=== PATIENT | male | born 1990 | race Caucasian/White ===

== ENCOUNTER 2019-06-23 19:23 | Emergency (ER) | payer SELFPAY ==
[2019-06-23] MEDS ORDERED: CLINDAMYCIN 600MG/50ML PREMIX 600 MG/50 ML BAG IVPB ONE (19:52)
[2019-06-23 20:01] LABS: ABSOLUTE NEUTROPHIL COUNT 5.53; BASO % 0.2 % (0-6); EOS % 0.9 % (0-6); GRAN % 60.9 % (47-80); HEMATOCRIT 44.9 % (42.0-52.0); HEMOGLOBIN 14.8 gm/dl (14.0-18.0); LYMPH % 30.3 % (16-45); MEAN CELL VOLUME 89.4 fl (81-97); MEAN CORPUSCULAR HEMOGLOBIN 29.5 pg (27-33); MEAN PLATELET VOLUME 10.3 fl (7.4-10.4); MONO % 7.7 % (0-9); PLATELET COUNT 230 K/uL (130-400); RED BLOOD COUNT 5.02 M/uL (4.40-5.70); RED CELL DISTRIBUTION WIDTH 12.7 % (11.5-14.5); WHITE BLOOD COUNT W/O DIFF 9.1 K/uL (4.2-12.2)
--- NOTE | 2019-06-23 20:11 | Emergency Department Record ---
History of Present Illness - General Chief complaint: Abscess Stated complaint: R SIDE FACIAL SWELLING Time Seen by Provider: 06/23/19 19:33 Source: Patient Mode of Arrival: Ambulatory Limitations: No limitations - History of Present Illness Initial comments: pt had fractures of his jaws a year ago and had surgery on them and has wires remaining. he has had swelling and drainage of the right side for the last day. he has had this happen a few times before but it quickly resolved. he did not call his surgeon MD complaint: Abscess/boil Onset/Timin -: Days(s) Location: Face Severity: Mild Consistency: Constant - Related Data Previous Rx's Medication Instructions Recorded Clindamycin HCl 150 mg PO Q8HR #30 capsule 06/23/19 Clindamycin HCl 300 mg PO Q8HR #30 capsule 06/23/19 Allergies Allergy/AdvReac Type Severity Reaction Status Date / Time No Known Drug Allergies Allergy Verified 06/23/19 19:44 Travel Screening - Travel/Exposure Within Last 30 Days Have you traveled within the last 30 days?: No - Travel/Exposure Within Last Year Have you traveled outside the [place] in the last year?: No - Additonal Travel Details Have you been exposed to anyone with a communicable illness?: No - Travel Symptoms Symptom Screening: None Review of Systems Reviewed: No additional complaints except as noted below Constitutional: Reports: As per HPI. Denies: Chills, Fever, Malaise, Night sweats, Weakness, Weight change Eyes: Reports: As per HPI. Denies: Eye discharge, Eye pain, Photophobia, Vision change ENT: Reports: As per HPI. Denies: Congestion, Dental pain, Ear pain, Epistaxis, Hearing loss, Throat pain Respiratory: Reports: As per HPI. Denies: Cough, Dyspnea, Hemoptysis, Stridor, Wheezes Cardiovascular: Reports: As per HPI. Denies: Arrhythmia, Chest pain, Dyspnea on exertion, Edema, Murmurs, Orthopnea, Palpitations, Paroxysmal nocturnal dyspnea, Rheumatic Fever, Syncope Endocrine: Reports: As per HPI. Denies: Fatigue, Heat or cold intolerance, Polydipsia, Polyuria Gastrointestinal: Reports: As per HPI. Denies: Abdominal pain, Constipation, Diarrhea, Hematemesis, Hematochezia, Melena, Nausea, Vomiting Genitourinary: Reports: As per HPI. Denies: Dysuria, Frequency, Hematuria, Incontinence, Retention, Testicular pain, Testicular mass, Urgency Musculoskeletal: Reports: As per HPI. Denies: Arthralgia, Back pain, Gout, Joint swelling, Myalgia, Neck pain Skin: Reports: As per HPI. Denies: Bruising, Change in color, Change in hair/nails, Lesions, Pruritus, Rash Neurological: Reports: As per HPI. Denies: Abnormal gait, Confusion, Headache, Numbness, Paresthesias, Seizure, Tingling, Tremors, Vertigo, Weakness Psychiatric: Reports: As per HPI. Denies: Anxiety, Auditory hallucinations, Depression, Homicidal thoughts, Suicidal thoughts, Visual hallucinations Hematological/Lymphatic: Reports: As per HPI. Denies: Anemia, Blood Clots, Easy bleeding, Easy bruising, Swollen glands Past Medical History - SOCIAL HISTORY Smoking Status: Never smoker Alcohol Use: None Drug Use: None - RESPIRATORY Hx Respiratory Disorders: No - CARDIOVASCULAR Hx Cardio Disorders: No - NEURO Hx Neuro Disorders: No - GI Hx GI Disorders: No - Hx Genitourinary Disorders: No - ENDOCRINE Hx Endocrine Disorders: No - MUSCULOSKELETAL Hx Musculoskeletal Disorders: Yes - PSYCH Hx Psych Problems: No - HEMATOLOGY/ONCOLOGY Hx Hematology/Oncology Disorders: No Family Medical History Any Significant Family History?: No Hx HTN: Father Physical Exam - General General Appearance: Alert, Oriented x3, Cooperative, No acute distress - Head Head exam: Normal inspection - Eye Eye exam: Normal appearance, PERRL, EOMI Pupils: Normal accommodation - ENT ENT exam: Normal exam, Mucous membranes moist, Normal external ear exam, Normal orophraynx, TM's normal bilaterally Ear exam: Normal external inspection. negative: External canal tenderness Nasal Exam: Normal inspection. negative: Discharge, Sinus tenderness Mouth exam: Normal external inspection, Tongue normal, Other (facial swelling of the r side of face) Teeth exam: Normal inspection. negative: Dental caries Throat exam: Normal inspection. negative: Tonsillar erythema, Tonsillar exudate - Neck Neck exam: Normal inspection, Full ROM. negative: Tenderness - Respiratory Respiratory exam: Normal lung sounds bilaterally. negative: Respiratory distress - Cardiovascular Cardiovascular Exam: Regular rate, Normal rhythm, Normal heart sounds - GI/Abdominal GI/Abdominal exam: Soft, Normal bowel sounds. negative: Tenderness - Rectal Rectal exam: Deferred - exam: Deferred - Extremities Extremities exam: Normal inspection, Full ROM, Normal capillary refill. negative: Tenderness - Back Back exam: Reports: Normal inspection, Full ROM. Denies: Muscle spasm, Rash noted, Tenderness - Neurological Neurological exam: Alert, CN II-XII intact, Normal gait, Oriented X3 - Psychiatric Psychiatric exam: Normal affect, Normal mood - Skin Skin exam: Dry, Intact, Normal color, Warm Course Vital Signs 06/23/19 19:27 Temperature 98.4 F Pulse Rate [ 74 Pulse Ox Probe] Respiratory 20 Rate Blood Pressure 135/87 [Left Arm] Pulse Ox 99 - Reevaluation(s) Reevaluation #1: 06/23/19 21:46 ct shows cellulitis Medical Decision Making - Lab Data Result diagrams: 06/23/19 19:55 06/23/19 19:55 Disposition Disposition: Discharge Clinical Impression: Cellulitis and abscess of face Disposition: Home, Self-Care Condition: (1) Good Instructions: Cellulitis (ED) Additional Instructions: follow up with dr whitt without fail on wednesday. return sooner if worse. sleep elevated. Prescriptions: Clindamycin HCl 150 mg PO Q8HR #30 capsule Clindamycin HCl 300 mg PO Q8HR #30 capsule Forms: Patient Portal Access Quality - Quality Measures Quality Measures: N/A - Blood Pressure Screening Does Patient Have Any of the Following: No Blood Pressure Classification: Pre-Hypertensive BP Reading Systolic Measurement: 135 Diastolic Measurement: 87 Screening for High Blood Pressure: < Pre-Hypertensive BP, F/U Documented > [G8950] Pre-Hypertensive Follow-up Interventions: Follow-up with rescreen every year.
[2019-06-23 20:14] LABS: BLOOD UREA NITROGEN 23 mg/dL (6-20); EST GLOMERULAR FILTRATION RATE > 60 mL/min
[2019-06-23 20:17] LABS: GLUCOSE,RANDOM 81 mg/dL (74-109)
[2019-06-23] MEDS ORDERED: CLINDAMYCIN 150 MG CAP PO ONE ×2 (21:50→21:51)
--- NOTE | 2019-06-25 20:51 | CT SCAN REPORT ---
EXAM: CT SCAN MAXILLOFACIAL WO CONTRAST HISTORY: FACE SWELLING ON THE RIGHT SINCE THIS MORNING. HAD BROKEN JAW 12 MONTHS AGO. SURGICAL SCARS UPPER JAW. TECHNIQUE: Axial CT scan of the maxillofacial bones performed without IV contrast. COMPARISON: None. ENCOUNTER: [facility]. FINDINGS: Paranasal sinuses all appear essentially clear with no air fluid levels evident. Visualized mastoids also appear clear. The orbits appear unremarkable. There are post-op changes seen involving the anterior aspect of the mandible bilaterally. There is also post-op change involving the medial aspect of the maxilla at the level of the superior extent of the roots of the right maxillary bicuspid and the left maxillary cuspid. There is some hazy density in the subcutaneous tissues anterior to the mandible on the right in particular. Evaluation of the soft tissues quite limited without IV contrast but no obvious discrete soft tissue abscess identified. No bony destructive lesion seen to suggest osteomyelitis at this time. The hazy density in the right side of the face at the level of the mandible and extending up along the maxilla is presumably some cellulitis. IMPRESSION: 1. POST-OP CHANGES INVOLVING THE MAXILLA AND MANDIBLE ANTERIORLY BILATERALLY. 2. SOME HAZY DENSITY IN THE SOFT TISSUES ALONG THE RIGHT SIDE OF THE FACE AT THE LEVEL OF THE MANDIBLE EXTENDING UP OVER THE RIGHT MAXILLA, PRESUMABLY REPRESENTING CELLULITIS. EVALUATION FOR POSSIBLE ABSCESS LIMITED BY LACK OF IV CONTRAST BUT NO DEFINITE ABSCESS IDENTIFIED. JOB NUMBER: [id number] [facility]
== END 2019-06-23 22:02 | disposition home or self-care (01) ==
LOC: ER 19:23
DX: L03.211 Cellulitis of face (principal)
CPT/HCPCS: 70486; 80048; 85025; 96365; 99284